=== PATIENT | female | born 1950 | race Caucasian/White ===

== ENCOUNTER 2022-04-19 00:56 | Emergency (ER) | payer MEDICARE ==
[~2022-04-19] VITALS: Ht 149.8 cm; Wt 158.7 kg
[2022-04-19 00:56] VITALS: BP 188/71
--- NOTE | 2022-04-19 01:00 | ED General ---
General Stated Complaint: BILAT LEG PAIN History of Present Illness Date Seen by Provider: Apr 19, 2022 Time Seen by Provider: 01:00 Initial Comments 71-year-old female was sent from the senior living with complaints of bilateral lower leg pain. Patient states she was not given anything for pain, no Tylenol or ibuprofen at the senior living. Patient has an Benedicto bandage placed tightly around both lower legs causing the feet to swell. The bandage has been on there for a couple weeks. Patient states that her pain is 8/10 in her legs. Denies fever, shortness of breath, chest pain, chills, palpitations. Allergies and Home Medications Allergies Coded Allergies: codeine (Verified Allergy, Unknown, 04/19/22) Uncoded Allergies: PENICILLIN (Allergy, Unknown, 04/19/22) SULFA (Allergy, Unknown, 04/19/22) Patient Home Medication List Home Medication List Reviewed: Yes Review of Systems Review of Systems Constitutional: no symptoms reported EENTM: no symptoms reported Respiratory: no symptoms reported Cardiovascular: no symptoms reported Gastrointestinal: no symptoms reported Genitourinary: no symptoms reported Musculoskeletal: joint swelling, muscle pain Skin: no symptoms reported Psychiatric/Neurological: No Symptoms Reported Hematologic/Lymphatic: No Symptoms Reported Physical Exam Vital Signs Capillary Refill : Height, Weight, BMI Height: '" Weight: lbs. oz. kg; BMI Method: General Appearance: No Apparent Distress HEENT: PERRL/EOMI Neck: Full Range of Motion Respiratory: Chest Non Tender, Lungs Clear, Normal Breath Sounds Extremity: Pedal Edema, Other (lower leg swelling, lower egs wrapped very tightly with BENEDICTO bandages, causing deep identations in the skin with resulting bruising and bluish discoloration of skin. When bandages were released patient stated she had a lot of relief from the pain.) Neurologic/Psychiatric: Alert, Oriented x3, No Motor/Sensory Deficits, Normal Mood/Affect Progress/Results/Core Measures Suspected Sepsis SIRS Temperature: Pulse: Respiratory Rate: Blood Pressure / Mean: Results/Orders My Orders Orders - LOUIE CURRY MD Acetaminophen Tablet/Caplet (Tylenol T (04/19/22 01:15) Vital Signs/I&O Capillary Refill : Progress Note : Progress Note 1. BILATERAL LOWER EXTREMITY PAIN: - When bandages were removed from legs, pain improved from 8/10 to 4/10. - Tylenol 650mg given - Pt's pain level improved. - Follow up with PCP - Advise senior living not to place benedicto bandage so tightly. If compression needed, use proper compression stockings - Departure Impression Primary Impression: Leg pain, bilateral Disposition: 01 HOME, SELF-CARE Condition: Improved Departure-Patient Inst. Patient Instructions: Lower Extremity Muscle Strain, Caicedo Splints Add. Discharge Instructions: - do not use BENEDICTO bandages as compression. Use appropriate compression stockings instead - elevate legs - Tylenol Q4H for pain - Follow up with PCP within 7days. LOUIE CURRY MD Apr 19, 2022 01:00
[2022-04-19] MEDS ORDERED: ACETAMINOPHEN 325 MG TABLET PO ONE (01:15)
== END 2022-04-19 01:34 | disposition home or self-care (01) ==
LOC: ER FS 01:02
DX: S80.11XA Contusion of right lower leg, initial encounter (principal); S80.12XA Contusion of left lower leg, initial encounter; X58.XXXA Exposure to other specified factors, initial encounter; Y92.129 Unspecified place in nursing home as the place of occurrence of the external cause
CPT/HCPCS: 99283

== ENCOUNTER 2022-06-11 21:36 | Emergency (ER) | payer MEDICARE ==
[2022-06-11 23:12] LABS: BILIRUBIN,URINE NEGATIVE (NEGATIVE); CLARITY,URINE CLEAR; COLOR,URINE YELLOW; GLUCOSE, URINE (UA) TRACE (NEGATIVE); KETONES,URINE NEGATIVE (NEGATIVE); LEUKOCYTE ESTERASE ,URINE NEGATIVE (NEGATIVE); NITRITE,URINE NEGATIVE (NEGATIVE); PROTEIN,URINE 2+ (NEGATIVE)
[2022-06-11 23:19] LABS: BACTERIA,URINE NEGATIVE /HPF; GRANULAR CASTS,URINE 0-2 /LPF; WBC,URINE RARE /HPF
--- NOTE | 2022-06-11 23:39 | ED General ---
General Chief Complaint: Glucose Problems Stated Complaint: BLOOD SUGAR HIGH Nursing Triage Note: Pt sent by [facility] due to pt blood glucose >600. EMS arrived and pt glucose was 254. Pt denies any complaints. Hx of DM and Dementia. Source of Information: Patient Exam Limitations: No Limitations History of Present Illness Date Seen by Provider: Jun 11, 2022 Time Seen by Provider: 22:45 Initial Comments Patient is a 71-year-old female who presents from [facility] nursing facility with ported blood sugar greater than 600. EMS arrived and patient's blood sugar was 254. Patient denies symptoms or complaints. History of diabetes and dementia and frequent urinary tract infections. Timing/Duration: 1-3 Hours Severity: Mild Modifying Factors: improves with Other Associated Systoms: Other Allergies and Home Medications Allergies Coded Allergies: Penicillins (Verified Allergy, Unknown, 04/21/22) codeine (Verified Allergy, Unknown, 04/19/22) Uncoded Allergies: PENICILLIN (Allergy, Unknown, 04/19/22) SULFA (Allergy, Unknown, 04/19/22) Patient Home Medication List Home Medication List Reviewed: Yes Review of Systems Review of Systems Constitutional: see HPI EENTM: see HPI Respiratory: see HPI Cardiovascular: see HPI Gastrointestinal: see HPI Genitourinary: see HPI Musculoskeletal: see HPI Skin: see HPI Psychiatric/Neurological: See HPI Hematologic/Lymphatic: See HPI Immunological/Allergic: see HPI Past Izchzxm-Omkdwl-Ppirql Hx Patient Social History Tobacco Use?: No Use of E-Cig and/or Vaping dev: No Substance use?: No Alcohol Use?: No Pt feels they are or have been: No Immunizations Up To Date First/Initial COVID19 Vaccinat: Moderna Second COVID19 Vaccination Duane: Moderna Past Medical History Surgery/Hospitalization HX: Dementia; CKD; Osteoarthritis; Gout; GERD; HTN; Chronic Constipation, Anemia, DM Physical Exam Vital Signs Vital Signs - First Documented 06/11/22 21:36 Temp 36.3 Pulse 61 Resp 17 B/P (MAP) 162/74 (103) Pulse Ox 97 O2 Delivery Room Air Capillary Refill : Less Than 3 Seconds Height, Weight, BMI Height: '" Weight: lbs. oz. kg; 70.00 BMI Method: General Appearance: No Apparent Distress, WD/WN Eyes: Bilateral Eye Normal Inspection, Bilateral Eye PERRL, Bilateral Eye EOMI HEENT: PERRL/EOMI, Normal ENT Inspection, Pharynx Normal Respiratory: Lungs Clear Cardiovascular: Other (Peripheral edema lower extremities with bilateral erythroderma) Neurologic/Psychiatric: Alert, Other (Alert and oriented to person and situation) Focused Exam Respiratory: Lungs Clear Progress/Results/Core Measures Suspected Sepsis SIRS Temperature: Pulse: 61 Respiratory Rate: 17 Blood Pressure 162 /74 Mean: 103 Results/Orders Lab Results Laboratory Tests Test 06/11/22 21:40 06/11/22 23:05 Range/Units Glucometer 263 H 70-110 MG/DL Urine Color YELLOW Urine Clarity CLEAR Urine pH 6.0 5-9 Urine Specific [place] 1.020 1.016-1.022 Urine Protein 2+ H NEGATIVE Urine Glucose (UA) TRACE H NEGATIVE Urine Ketones NEGATIVE NEGATIVE Urine Nitrite NEGATIVE NEGATIVE Urine Bilirubin NEGATIVE NEGATIVE Urine Urobilinogen 0.2 < = 1.0 MG/DL Urine Leukocyte Esterase NEGATIVE NEGATIVE Urine RBC (Auto) TRACE-I H NEGATIVE Urine RBC 2-5 H /HPF Urine WBC RARE /HPF Urine Squamous Epithelial Cells 2-5 /HPF Urine Crystals NONE /LPF Urine Bacteria NEGATIVE /HPF Urine Casts PRESENT /LPF Urine Hyaline Casts 5-10 H /LPF Urine Granular Casts 0-2 H /LPF Urine Mucus NEGATIVE /LPF Urine Culture Indicated NO My Orders Orders - JANET PETTIT DO Ua Culture If Indicated (06/11/22 22:49) Vital Signs/I&O 06/11/22 21:36 Temp 36.3 Pulse 61 Resp 17 B/P (MAP) 162/74 (103) Pulse Ox 97 O2 Delivery Room Air Capillary Refill : Less Than 3 Seconds 2 Blood Pressure Mean: 103 Point of Care Testing Finger Stick Blood Glucose: 263 Blood Glucose Action Taken: Dr. Pettit notified Departure Communication (Admissions) Patient blood sugar in the 250s. UA negative. She is otherwise stable with no complaints. Recommendations are watchful waiting with return to nursing facility with continued diabetic regimen and PCP follow-up for further managemen t. Return precautions reviewed. Impression Primary Impression: Hyperglycemia Disposition: 01 HOME, SELF-CARE Condition: Stable Departure-Patient Inst. Decision time for Depature: 23:38 Referrals: SELF,BERT HERNANDEZ (PCP/Family) Primary Care Physician Patient Instructions: High Blood Sugar, Adult ED Add. Discharge Instructions: Johnson evaluated in the emergency department for an elevated blood sugar. Her blood sugars are in the 260s. Urine was performed does not show current evidence of infection. Please continue diabetic medications with frequent Accu- Cheks and PCP follow-up for further management. All discharge instructions reviewed with patient and/or family. Voiced understanding. JANET PETTIT DO Jun 11, 2022 23:39
[2022-06-11 23:50] VITALS: BP 170/75
== END 2022-06-11 23:50 | disposition home or self-care (01) ==
LOC: EDUNIT# 21:36 → ER FS 21:37
DX: E11.65 Type 2 diabetes mellitus with hyperglycemia (principal); F03.90 Unspecified dementia, unspecified severity, without behavioral disturbance, psychotic disturbance, mood disturbance, and anxiety
CPT/HCPCS: 51701; 81000; 82947

== ENCOUNTER 2022-07-04 19:57 | Emergency (ER) | payer MEDICARE ==
[2022-07-04 20:00] VITALS: BP 143/117
[2022-07-04 20:08] LABS: BASOPHILS # (AUTO) 0.1 10^3/uL (0.0-0.1); BASOPHILS % (AUTO) 0 % (0-10); EOSINOPHILS # (AUTO) 0.3 10^3/uL (0.0-0.3); EOSINOPHILS % (AUTO) 1 % (0-10); HEMATOCRIT 38 % (35-52); HEMOGLOBIN 11.9 g/dL (11.5-16.0); LYMPHOCYTES # (AUTO) 0.8 10^3/uL (1.0-4.0); LYMPHOCYTES % (AUTO) 4 % (12-44); MEAN CORPUSCULAR HEMOGLOBIN 30 pg (25-34); MEAN CORPUSCULAR HGB CONC 32 g/dL (32-36); MEAN CORPUSCULAR VOLUME 96 fL (80-99); MONOCYTES # (AUTO) 0.5 10^3/uL (0.0-1.0); MONOCYTES % (AUTO) 2 % (0-12); NEUTROPHILS # (AUTO) 20.6 10^3/uL (1.8-7.8); NEUTROPHILS % (AUTO) 92 % (42-75); PLATELET COUNT 235 10^3/uL (130-400); WHITE BLOOD COUNT 22.4 10^3/uL (4.3-11.0)
--- NOTE | 2022-07-04 20:09 | ED Respiratory ---
General Chief Complaint: Respiratory Problems Stated Complaint: SOB Source: patient History of Present Illness Date Seen by Provider: Jul 04, 2022 Time Seen by Provider: 19:57 Initial Comments 71 yo female presenting by EMS from [facility]. She was reportedly having increased shaking of her arms for tremor and the NH told EMS pt was getting blue around her lips and they had a low O2 sat. patient denies having shortness of breath or cough. She states that she has tremor and shake to her arms when she gets cold or if she is nervous. She denies having fever, chills, cough, shortness of breath, chest pain, abdominal pain, nausea, vomiting, pain with urination. She did have a COVID swab done at the residential just prior to EMS picking her up and they reported that it was positive. Pt was having some wheezing for EMS so they gave her a duoneb breathing treatment. She reports she feels better and like she is breathing easier since they did that. Severity: moderate Modifying Factors: Improves With Albuterol Nebulizer (duoneb breathing treatment by EMS helped with her wheezing and breathing) Associated Symptoms: No chest pain/soreness, No cough, No dizziness, No earache, No facial pain, No fever/chills, No headache, No lightheadedness, No muscle aches, No nasal congestion, No nasal drainage; shortness of breath; No sinus infection, No sore throat; wheezing Allergies and Home Medications Allergies Coded Allergies: Penicillins (Verified Allergy, Unknown, 04/21/22) codeine (Verified Allergy, Unknown, 04/19/22) Uncoded Allergies: PENICILLIN (Allergy, Unknown, 04/19/22) SULFA (Allergy, Unknown, 04/19/22) Patient Home Medication List Home Medication List Reviewed: Yes Nitrofurantoin Monohyd/M-Cryst (Macrobid 100 mg Capsule) 100 Mg Capsule, 1 TAB PO BID Prescribed by: MAURICE GREENFIELD on 07/04/227 Review of Systems Review of Systems Constitutional: No chills, No fever EENTM: no symptoms reported Respiratory: see HPI Cardiovascular: edema (chronic edema to BLE with weeping) Gastrointestinal: no symptoms reported Genitourinary: no symptoms reported Musculoskeletal: no symptoms reported Skin: other (chronic weeping from BLE with edema and scaling) Psychiatric/Neurological: Anxiety Past Wbtcyam-Mblqfn-Grvxbl Hx Patient Social History Tobacco Use?: No Use of E-Cig and/or Vaping dev: No Substance use?: No Alcohol Use?: No Pt feels they are or have been: No Immunizations Up To Date First/Initial COVID19 Vaccinat: Moderna Second COVID19 Vaccination Duane: Moderna Past Medical History Surgery/Hospitalization HX: Dementia; CKD; Osteoarthritis; Gout; GERD; HTN; Chronic Constipation, Anemia, DM Physical Exam Vital Signs - First Documented 07/04/22 20:00 Temp 37.1 Pulse 90 Resp 22 B/P (MAP) 143/117 (126) Pulse Ox 100 O2 Delivery Room Air Capillary Refill : Height: '" Weight: lbs. oz. kg; 70.00 BMI Method: General Appearance: obese, other (appears anxious) HEENT: PERRL/EOMI, pharynx normal Neck: non-tender, full range of motion, supple, normal inspection Respiratory: chest non-tender, lungs clear, normal breath sounds, no respiratory distress, no accessory muscle use Cardiovascular: normal peripheral pulses, regular rate, rhythm Gastrointestinal: normal bowel sounds, non tender, soft, no pulsatile mass Extremities: normal range of motion, normal capillary refill; No calf tenderness; pedal edema (3+BLE) Neurologic/Psychiatric: alert, oriented x 3, other (tremor of bilateral upper extremities that decreases with activity and intention) Skin: warm/dry, other (erythema and scaling to BLE with chronic edema) Focused Exam Lactate Level 07/04/22 19:50: Lactic Acid Level 1.68 Lactic Acid Level Laboratory Tests Test 07/04/22 19:50 Lactic Acid Level 1.68 MMOL/L (0.50-2.00) Progress/Results/Core Measures Suspected Sepsis SIRS Temperature: Pulse: Respiratory Rate: Laboratory Tests 07/04/22 19:50: White Blood Count 22.4H Blood Pressure / Mean: 07/04/22 19:50: Lactic Acid Level 1.68 Laboratory Tests 07/04/22 19:50: Creatinine 2.09H, INR Comment 1.0, Platelet Count 235, Total Bilirubin 0.2 Results/Orders Lab Results Laboratory Tests Test 07/04/22 19:50 07/04/22 20:50 Range/Units White Blood Count 22.4 H 4.3-11.0 10^3/uL Red Blood Count 3.91 3.80-5.11 10^6/uL Hemoglobin 11.9 11.5-16.0 g/dL Hematocrit 38 35-52 % Mean Corpuscular Volume 96 80-99 fL Mean Corpuscular Hemoglobin 30 25-34 pg Mean Corpuscular Hemoglobin Concent 32 32-36 g/dL Red Cell Distribution Width 13.6 10.0-14.5 % Platelet Count 235 130-400 10^3/uL Mean Platelet Volume 11.0 9.0-12.2 fL Immature Granulocyte % (Auto) 0 % Neutrophils (%) (Auto) 92 H 42-75 % Lymphocytes (%) (Auto) 4 L 12-44 % Monocytes (%) (Auto) 2 0-12 % Eosinophils (%) (Auto) 1 0-10 % Basophils (%) (Auto) 0 0-10 % Neutrophils # (Auto) 20.6 H 1.8-7.8 10^3/uL Lymphocytes # (Auto) 0.8 L 1.0-4.0 10^3/uL Monocytes # (Auto) 0.5 0.0-1.0 10^3/uL Eosinophils # (Auto) 0.3 0.0-0.3 10^3/uL Basophils # (Auto) 0.1 0.0-0.1 10^3/uL Immature Granulocyte # (Auto) 0.1 0.0-0.1 10^3/uL Neutrophils % (Manual) 87 % Lymphocytes % (Manual) 11 % Monocytes % (Manual) 2 % Prothrombin Time 13.3 12.2-14.7 SEC INR Comment 1.0 0.8-1.4 Activated Partial Thromboplast Time 24 24-35 SEC Sodium Level 138 135-145 MMOL/L Potassium Level 5.9 H 3.6-5.0 MMOL/L Chloride Level 106 98-107 MMOL/L Carbon Dioxide Level 21 21-32 MMOL/L Anion Gap 11 5-14 MMOL/L Blood Urea Nitrogen 90 H 7-18 MG/DL Creatinine 2.09 H 0.60-1.30 MG/DL Estimat Glomerular Filtration Rate 25 BUN/Creatinine Ratio 43 Glucose Level 290 H 70-105 MG/DL Lactic Acid Level 1.68 0.50-2.00 MMOL/L Calcium Level 9.0 8.5-10.1 MG/DL Corrected Calcium 9.6 8.5-10.1 MG/DL Total Bilirubin 0.2 0.1-1.0 MG/DL Aspartate Amino Transf (AST/SGOT) 15 5-34 U/L Alanine Aminotransferase (ALT/SGPT) 17 0-55 U/L Alkaline Phosphatase 127 40-136 U/L C-Reactive Protein 0.56 H <0.50 MG/DL Total Protein 7.5 6.4-8.2 GM/DL Albumin 3.2 3.2-4.5 GM/DL Influenza Type A (RT-PCR) Not Detected Not Detecte Influenza Type B (RT-PCR) Not Detected Not Detecte SARS-CoV-2 RNA (RT-PCR) Not Detected Not Detecte Urine Color YELLOW Urine Clarity CLOUDY Urine pH 6.0 5-9 Urine Specific [place] 1.020 1.016-1.022 Urine Protein 2+ H NEGATIVE Urine Glucose (UA) TRACE H NEGATIVE Urine Ketones NEGATIVE NEGATIVE Urine Nitrite NEGATIVE NEGATIVE Urine Bilirubin NEGATIVE NEGATIVE Urine Urobilinogen 0.2 < = 1.0 MG/DL Urine Leukocyte Esterase 1+ H NEGATIVE Urine RBC (Auto) TRACE-I H NEGATIVE Urine RBC NONE /HPF Urine WBC 50-100 H /HPF Urine Squamous Epithelial Cells >50 H /HPF Urine Crystals NONE /LPF Urine Bacteria MODERATE H /HPF Urine Casts NONE /LPF Urine Mucus NEGATIVE /LPF Urine Culture Indicated NO My Orders Orders - MAURICE GREENFIELD MD Vital Signs: Every 4 Hours (Or (07/04/22 20:02) Monitor-Rhythm Ecg Trace Only (07/04/22 20:02) Ed Iv/Invasive Line Start (07/04/22 20:02) Cbc With Automated Diff (07/04/22 20:02) Comprehensive Metabolic Panel (07/04/22 20:02) Crp Fs (07/04/22 20:02) Protime With Inr (07/04/22 20:02) Partial Thromboplastin Time (07/04/22 20:02) Ns Iv 1000 Ml (Sodium Chloride 0.9%) (07/04/22 20:15) Covid 19 Inhouse Test (07/04/22 20:02) Chest 1 View Ap/Pa Only (07/04/22 20:02) Influenza A And B By Pcr (07/04/22 20:02) Isolation Central Supply Req (07/04/22 20:02) Manual Differential (07/04/22 19:50) Blood Culture (07/04/22 20:33) Ua Culture If Indicated (07/04/22 20:33) Lactic Acid Analyzer (07/04/22 20:33) Nitrofurantoin Capsule,Macro (Macrobid C (07/04/22 21:07) Vital Signs/I&O 07/04/22 07/04/22 20:00 21:07 Temp 37.1 Pulse 90 78 Resp 22 20 B/P (MAP) 143/117 (126) 159/76 Pulse Ox 100 99 O2 Delivery Room Air Room Air Capillary Refill : Progress Note #1: Progress Note Oxygen saturation is 98 to 100% on room air. Lungs are clear and exam is benign other than chronic changes of obesity and bilateral lower extremity edema. Will recheck COVID and influenza swab. Obtain x-ray and basic labs. Give normal saline IV fluid bolus. Differential diagnosis includes COVID-19 infection, pneumonia, anxiety, upper respiratory infection Progress Note #2: Progress Note CXR does not show any acute infiltrate. CBC has elevated WBC count of 22.4 with left shift. Chemistry shows slight increase in chronic renal insufficiency and elevated potassium. Influenza and Covid testing here is negative although pt reportedly had a positive Covid test at [place] prior to transport. No focal source of infection. Will add on blood cultures and lactic acid with her elevated WBC count and try to get a UA. Progress Note #3: Progress Note UA showed bacteria and LE so will try treating for UTI. She had some epithelial cells so might be more contaminant but as she has no other source of infection will try treating for this. she had Macrobid in November so will refill that. Lactic acid was not elevated. No bands seen on differential for WBC so some of this might be hydration and hemoconcentration. With negative Covid/Influenza will discharge back to [place] and have her check back with pcp Diagnostic Imaging Diagonstic Imaging: Xray Plain Films/CT/US/NM/MRI: chest Comments NAME: GEOVANNY DUFF [facility] REC#: [id number] PT STATUS: REG ER : 1950 PHYSICIAN: MAURICE GREENFIELD MD ADMIT DATE: 07/04/22/ER FS Draft Date of Exam:07/04/22 CHEST 1 VIEW AP/PA ONLY INDICATION: Short of breath, COVID +. TECHNIQUE: Single view chest 8:11 PM. CORRELATION STUDY: 04/14/2022. FINDINGS: Heart size remains mildly enlarged but relatively stable. Vasculature overall within normal limits. Lung parenchyma appears relatively stable without evidence for infiltrate. No effusion. Left upper lung field is partially obscured by overlying clothing. IMPRESSION: Cardiac enlargement without failure. No definitive consolidating infiltrate. Dictated on workstation # [id number] Dict: 07/04/222017 Trans: 07/04/222020 [facility] [id number] Interpreted by: ORION MARTINEZ DO Electronically signed by: Reviewed: Reviewed by Me Departure Impression Primary Impression: Acute cystitis without hematuria Additional Impression: Limb tremor Disposition: 01 HOME, SELF-CARE Condition: Stable Departure-Patient Inst. Decision time for Depature: 21:03 Referrals: SELFBERT MD (PCP/Family) Primary Care Physician Patient Instructions: Tremor, Urinary Tract Infection, Adult ED Add. Discharge Instructions: Your PCR tests for Covid and Influenza were negative here in the Emergency Department. Your labs show you have a UTI and some mild dehydration. You were given a first dose of antibiotics here and some IVF for hydration. Take the antibiotic for next 5 days. Check back with clinic for continued concerns. All discharge instructions reviewed with patient and/or family. Voiced understanding. Scripts Nitrofurantoin Monohyd/M-Cryst (Macrobid 100 mg Capsule) 100 Mg Capsule 1 TAB PO BID for Cystitis without hematuria for 5 Days, #10 CAP 0 Refills Prov: MAURICE GREENFIELD MD 07/04/22 MAURICE GREENFIELD MD Jul 04, 2022 20:09
[2022-07-04] MEDS ORDERED: NS IV 1000 ML 1,000 ML IV SCH (20:15)
[2022-07-04 20:17] LABS: PROTHROMBIN TIME PATIENT 13.3 SEC (12.2-14.7)
--- NOTE | 2022-07-04 20:22 | Diagnostic Imaging Report ---
INDICATION: Short of breath, COVID +. TECHNIQUE: Single view chest 8:11 PM. CORRELATION STUDY: 04/14/2022. FINDINGS: Heart size remains mildly enlarged but relatively stable. Vasculature overall within normal limits. Lung parenchyma appears relatively stable without evidence for infiltrate. No effusion. Left upper lung field is partially obscured by overlying clothing. IMPRESSION: Cardiac enlargement without failure. No definitive consolidating infiltrate. Dictated by: Dictated on workstation # [id number]
[2022-07-04 20:25] LABS: ALBUMIN 3.2 GM/DL (3.2-4.5); BILIRUBIN,TOTAL 0.2 MG/DL (0.1-1.0); CREATININE SERUM 2.09 MG/DL (0.60-1.30); POTASSIUM 5.9 MMOL/L (3.6-5.0); TOTAL PROTEIN 7.5 GM/DL (6.4-8.2)
[2022-07-04 20:41] LABS: LYMPHOCYTES % (MANUAL) 11 %; NEUTROPHILS % (MANUAL) 87 %
[2022-07-04 20:42] LABS: MONOCYTES % (MANUAL) 2 %
[2022-07-04 20:55] LABS: BILIRUBIN,URINE NEGATIVE (NEGATIVE); COLOR,URINE YELLOW; GLUCOSE, URINE (UA) TRACE (NEGATIVE); KETONES,URINE NEGATIVE (NEGATIVE); LEUKOCYTE ESTERASE ,URINE 1+ (NEGATIVE); NITRITE,URINE NEGATIVE (NEGATIVE); PROTEIN,URINE 2+ (NEGATIVE)
[2022-07-04 20:58] LABS: BACTERIA,URINE MODERATE /HPF; CLARITY,URINE CLOUDY; SQUAMOUS EPITHELIAL CELL,UR >50 /HPF; WBC,URINE 50-100 /HPF
[2022-07-04] MEDS ORDERED: NITROFURANTOIN 100 MG (MACROBID) CAPSULE PO STA (21:07)
[2022-07-04] MEDS ORDERED: NITR-65 PO ×2 (21:07→21:36)
== END 2022-07-04 21:43 | disposition home or self-care (01) ==
LOC: EDUNIT# 19:57 → ER FS 19:58
DX: N30.00 Acute cystitis without hematuria (principal); R25.1 Tremor, unspecified; E87.5 Hyperkalemia; E11.22 Type 2 diabetes mellitus with diabetic chronic kidney disease; I12.9 Hypertensive chronic kidney disease with stage 1 through stage 4 chronic kidney disease, or unspecified chronic kidney disease; N18.9 Chronic kidney disease, unspecified; D63.1 Anemia in chronic kidney disease; Z88.0 Allergy status to penicillin; Z20.822 Contact with and (suspected) exposure to COVID-19
CPT/HCPCS: 36415; 71045; 80053; 81000; 83605; 85007; 85027; 85610; 85730; 86141; 87040; 87636; 93041

== ENCOUNTER 2022-08-02 17:34 | Emergency (ER) | payer MEDICARE ==
[~2022-08-02 17:34] MED LIST: NITR-65 PO
[2022-08-02] MEDS ORDERED: LORazepam 0.5 MG (ATIVAN) TABLET PO STA (17:47)
--- NOTE | 2022-08-02 17:56 | ED General ---
General Chief Complaint: General Problems/Pain Stated Complaint: VLADIMIR LEG SWELLING/REDNESS; ANXIETY Source of Information: Patient, EMS, Family Exam Limitations: No Limitations History of Present Illness Date Seen by Provider: Aug 02, 2022 Time Seen by Provider: 17:36 Initial Comments 71-year-old female with past medical history of dementia, CKD, diabetes coming via EMS from the memory care unit due to concerns for worsening anxiety and lower leg swelling. The patient does have chronic lymphedema and has for years. She has chronic venous stasis changes in her legs with bilateral redness which is largely unchanged. Urgently the EMS call was for anxiety. The patient states she feels essentially normal, had some shortness of breath yesterday but feels at her baseline today. Denies any chest pain, dyspnea, abdominal pain, nausea, vomiting, diarrhea, fever, chills, focal weakness or numbness, or any other concerns. She believes she is here for her leg swelling. The swelling is unchanged from chronic, and she does have an elevated at times and is on Bumex for it. Allergies and Home Medications Allergies Coded Allergies: Penicillins (Verified Allergy, Unknown, 04/21/22) codeine (Verified Allergy, Unknown, 04/19/22) Uncoded Allergies: PENICILLIN (Allergy, Unknown, 04/19/22) SULFA (Allergy, Unknown, 04/19/22) Patient Home Medication List Home Medication List Reviewed: Yes Nitrofurantoin Monohyd/M-Cryst (Macrobid 100 mg Capsule) 100 Mg Capsule, 1 TAB PO BID Prescribed by: MAURICE GREENFIELD on 07/04/222135 Review of Systems Review of Systems Constitutional: No fever EENTM: No blurred vision Respiratory: No cough, No short of breath Cardiovascular: No chest pain Gastrointestinal: No abdominal pain Genitourinary: no symptoms reported Musculoskeletal: see HPI Skin: see HPI Psychiatric/Neurological: Anxiety Hematologic/Lymphatic: No Symptoms Reported Immunological/Allergic: no symptoms reported All Other Systems Reviewed Negative Unless Noted: Yes Past Fdyxrye-Hkcrko-Pirwxu Hx Patient Social History Tobacco Use?: No Use of E-Cig and/or Vaping dev: No Substance use?: No Alcohol Use?: No Pt feels they are or have been: No Immunizations Up To Date First/Initial COVID19 Vaccinat: Moderna Second COVID19 Vaccination Duane: Moderna Third COVID19 Vaccination Date: Modern Past Medical History Surgery/Hospitalization HX: Dementia; CKD; Osteoarthritis; Gout; GERD; HTN; Chronic Constipation, Anemia, DM; lower extremity swelling; cellulitis Surgeries: Yes Orthopedic Physical Exam Vital Signs Vital Signs - First Documented 08/02/22 17:34 Temp 37.0 Pulse 84 Resp 20 B/P (MAP) 178/93 (121) Pulse Ox 99 O2 Delivery Room Air Capillary Refill : Height, Weight, BMI Height: '" Weight: lbs. oz. kg; 70.00 BMI Method: General Appearance: No Apparent Distress, WD/WN Eyes: Bilateral Eye Normal Inspection HEENT: PERRL/EOMI, Normal ENT Inspection, Pharynx Normal Neck: Full Range of Motion, Normal Inspection, Non Tender, Supple Respiratory: Chest Non Tender, Lungs Clear, Normal Breath Sounds, No Accessory Muscle Use, No Respiratory Distress Cardiovascular: Regular Rate, Rhythm, Normal Peripheral Pulses Gastrointestinal: Normal Bowel Sounds, Non Tender, Soft; No Distended, No Guarding Back: Normal Inspection, No CVA Tenderness Extremity: Normal Capillary Refill, Normal Inspection, Normal Range of Motion, Non Tender, No Calf Tenderness Neurologic/Psychiatric: Alert, No Motor/Sensory Deficits, Normal Mood/Affect Skin: Warm/Dry, Other (Bilateral lower extremity lymphedema with chronic skin changes including venous stasis bilaterally that is equal, no warmth or significant pain) Lymphatic: No Adenopathy Progress/Results/Core Measures Suspected Sepsis SIRS Temperature: Pulse: Respiratory Rate: Blood Pressure / Mean: Results/Orders My Orders Orders - ASHER KANG MD Lorazepam Tablet (Ativan Tablet) (08/02/22 17:47) Chest 1 View Ap/Pa Only (08/02/22 17:47) Acetaminophen Tablet (Tylenol Tablet) (08/02/22 18:00) Bumetanide Injection (Bumex Injection) (08/02/22 18:09) Bumetanide Injection (Bumex Injection) (08/02/22 18:23) Medications Given in ED Current Medications Medications Dose Ordered Sig/Mellisa Route Start Time Stop Time Status Last Admin Dose Admin Acetaminophen 1,000 mg ONCE ONCE PO 08/02/22 18:00 08/02/22 18:01 DC 08/02/22 17:59 1,000 MG Vital Signs/I&O 08/02/22 17:34 Temp 37.0 Pulse 84 Resp 20 B/P (MAP) 178/93 (121) Pulse Ox 99 O2 Delivery Room Air Capillary Refill : Progress Note : Progress Note 71-year-old female with above history brought in by EMS for lower extremity swelling and anxiety related to that. ABCs were intact and vitals were stable on presentation. Physical exam with chronic lymphedema and venous stasis changes that is not consistent with cellulitis. They placed her on oxygen at the [facility] care unit intermittently as needed. Here she is 96% on room air and breathing comfortably. Screening chest x-ray performed given questionable complaint of dyspnea yesterday. On my interpretation no obvious pneumonia, pneumothorax, but does have some edema. CXR official read showing the pulm edema and possible base infiltrate. She does not have any cough or fever so clinically does not have pneumonia. We gave an extra dose of bumex IM to help facilitate diuresis. Given she is essentially bedbound and not a fall risk, we will give her a small dose of Ativan for anxiety. I believe she is stable for discharge with outpatient follow-up. She was sent home with strict return precautions Diagnostic Imaging Diagonstic Imaging: Xray Plain Films/CT/US/NM/MRI: chest Comments NAME: GEOVANNY DUFF [facility] REC#: [id number] PT STATUS: REG ER : 1950 PHYSICIAN: ASHER KANG MD ADMIT DATE: 08/02/22/ER FS Draft Date of Exam:08/02/22 CHEST 1 VIEW AP/PA ONLY INDICATION: Shortness of breath, bilateral leg swelling. EXAMINATION: Chest 08/02/2022 COMPARISON: 07/04/2022 FINDINGS: There is cardiomegaly and pulmonary vascular congestion with findings of edema throughout both lungs. There may be mild infiltrate left lung base. No effusions. No pneumothorax. IMPRESSION: 1. Pulmonary edema with possible left base infiltrate. Dictated on workstation # [id number] Dict: 08/02/221826 Trans: 08/02/221831 CVB [id number] Interpreted by: JOSELO THAO MD Electronically signed by: Departure Impression Primary Impression: Lymphedema Additional Impression: Venous stasis dermatitis of both lower extremities Disposition: HOME, SELF-CARE Condition: Stable Departure-Patient Inst. Decision time for Depature: 18:30 Referrals: BERT FINLEY MD (PCP) Primary Care Physician Patient Instructions: Lymphedema (DC) Add. Discharge Instructions: Fortunately the redness on the legs is not cellulitis or any other infection. It is venous stasis dermatitis which is just redness and thickening of the skin caused from essentially the lymphedema. Continue to use compression stockings and elevate the legs. If the redness becomes more unilateral and worse on one side with more pain on 1 side compared to the other or she develops a fever with it then have her follow-up with your primary or come back to the ER for evaluation. Chest xray did not show any signs of infection and her oxygen was 96% on room air here. We gave her an extra injection of the bumetanide to help diurese her. ASHER KANG MD Aug 02, 2022 17:56
[2022-08-02] MEDS ORDERED: ACETAMINOPHEN 500 MG TAB (TYLENOL) PO ONE (18:00)
[2022-08-02] MEDS ORDERED: BUMETANIDE 1 MG/4 ML (BUMEX) VIAL IJ STA (18:09)
[2022-08-02 18:20] VITALS: BP 178/93
[2022-08-02] MEDS ORDERED: BUMETANIDE 2.5 MG/10 ML (BUMEX) VIAL ONE (18:23)
--- NOTE | 2022-08-02 18:33 | Diagnostic Imaging Report ---
INDICATION: Shortness of breath, bilateral leg swelling. EXAMINATION: Chest 08/02/2022 COMPARISON: 07/04/2022 FINDINGS: There is cardiomegaly and pulmonary vascular congestion with findings of edema throughout both lungs. There may be mild infiltrate left lung base. No effusions. No pneumothorax. IMPRESSION: 1. Pulmonary edema with possible left base infiltrate. Dictated by: Dictated on workstation # [id number]
== END 2022-08-02 18:20 | disposition home or self-care (01) ==
LOC: EDUNIT# 17:34 → ER FS 17:35
DX: I87.2 Venous insufficiency (chronic) (peripheral) (principal); I89.0 Lymphedema, not elsewhere classified
CPT/HCPCS: 71045

== ENCOUNTER → 2022-08-13 | Outpatient (CLI) | payer MEDICARE | LOC: CARD 13:23 | PROVIDERS: ATTEND Family Medicine | DX: I51.7 Cardiomegaly (principal) ==